=== PATIENT | male | born 1940 | race Caucasian/White ===

== ENCOUNTER 2018-11-21 06:10 | Day surgery (SDC) | payer OTHER ==
[2018-11-15 12:46] VITALS: BMI 26.4
[2018-11-21] MEDS ORDERED: ERYTHROMYCIN 0.5% OPHTHALMIC OINTMENT 3.5 GM TUBE ONE (07:13)
[2018-11-21] MEDS ORDERED: TETRACAINE 0.5% OPHTH SOLN 2 ML BOTTLE ONE (07:13)
[2018-11-21] MEDS ORDERED: BUPIVACAINE HCL/PF 0.5% (5MG/ML) 10 ML VIAL ONE (07:14)
[2018-11-21] MEDS ORDERED: LIDOCAINE 1%/EPI 1:100000 (20 ML MULTI DOSE VIAL) ONE (07:14)
[2018-11-21] MEDS ORDERED: THROMBIN (RECOMBINANT) 5,000 UNIT VIAL TP ONE (07:14)
[2018-11-21] MEDS ORDERED: POVIDONE-IODINE 5% OPHTHALMIC PREP 30 ML SOLUTION ONE (07:25)
[2018-11-21] MEDS ORDERED: MIDAZOLAM HCL 2 MG/2 ML SINGLE DOSE VIAL ONE (07:34)
[2018-11-21] MEDS ORDERED: PROPOFOL 20 ML ONE (07:53)
[2018-11-21] MEDS ORDERED: ceFAZolin SODIUM 1 GM VIAL ONE (07:59)
[2018-11-21] MEDS ORDERED: DEXAMETHASONE SOD PHOSPHATE 4 MG/1 ML VIAL ONE (08:03)
[2018-11-21] MEDS ORDERED: ONDANSETRON 4 MG/2 ML VIAL ONE (08:03)
[2018-11-21] MEDS ORDERED: ONDANSETRON 4 MG/2 ML VIAL IVPUSH PRN (08:35)
[2018-11-21] MEDS ORDERED: oxyCODONE HCL 5 MG TABLET PO PRN (08:35)
[2018-11-21] MEDS ORDERED: LACTATED RINGERS SOLUTION 1,000 ML IV SCH (08:45)
[2018-11-21] MEDS ORDERED: ALBUTEROL SO4 0.083% IH SOL 2.5 MG/3 ML VIAL.NEB. NEB ONE ×2 (09:54→09:57)
--- NOTE | 2018-11-21 10:23 | OP ---
DATE OF OPERATION: 11/21/2018 PREOPERATIVE DIAGNOSIS: Involutional entropion, left lower lid, with secondary keratitis. POSTOPERATIVE DIAGNOSIS: Involutional entropion, left lower lid, with secondary keratitis. PROCEDURE: 1. Lateral tarsal strip, left lower lid. 2. Transconjunctival release of retractors with retractor plication, left lower lid. 3. Excision of orbicularis flap, left lower lid. SURGEON: Court Lewis MD ANESTHESIA: LMA due to a history of baseline decreased oxygenation and COPD. ESTIMATED BLOOD LOSS: 2-3 mL. OPERATION REPORT: Patient was brought to the operating room, placed on the operating room table. Vital signs were monitored by Anesthesia. Tetracaine was placed in both eyes. The patient was placed under LMA anesthesia. Time-out was performed. A line was marked in the left lateral canthus, and a 50/50 mixture of 2% Xylocaine with 1:100,000 epinephrine and 0.5% Marcaine was injected into the lateral canthus down to the periosteum, lateral third in the upper lid, subconjunctivally below the tarsus for a total of 2-3 mL. The patient was massaged for hemostasis. He was prepped and draped in the usual sterile fashion. Right eye was maintained closed during the surgery. Lateral canthal incision was made with a 15 blade through skin and subcutaneous tissue. Hemostasis was achieved with a Maries needle throughout the case. Dissection was carried down to the orbital rim. The inferior faby and the lateral canthal tendon were from the superior faby and released from the orbital rim. The lid was overlapped at the orbital rim, marked with a sterile marking pen, divided into anterior and posterior lamella. The anterior lamella was excised. The posterior lamella was denuded of epithelium posteriorly and superiorly, and the tarsal strip was then reattached at the orbital rim at the junction with a superior faby and lateral canthal tendon with a double arm 5-0 Prolene reinforced with two 6-0 Vicryl lasso sutures. This was checked for symmetry, but not tied at this point. Then, 4-0 silk traction sutures were passed through the central lid margin. Lid was everted over the Desmarres retractor. Transconjunctival incision was made at the inferior tarsal border from punctum to lateral canthus. The retractors were from the orbicularis and dissected down to the septum releasing it, and this created a retractor plane. The tarsus was then from the pretarsal orbicularis internally with a Maries needle. A partial thickness strip of orbicularis was excised at the inferior tarsal border, and a row of cautery was placed to create a scar and prevent overriding the preseptal orbicularis. The retractors were then reattached to the anterior inferior tarsus with 4 or 5 interrupted buried 6-0 Vicryl sutures plicating the retractors and closing the conjunctiva in this fashion. The lateral canthal angle was then closed with a buried 5-0 chromic suture. The Prolene was now tied, reattaching the lateral portion of the eyelid to the orbital rim. Tension was checked and seemed to be appropriate. The excess tarsal strip was overlapped over the Prolene and tied with a 5-0 chromic, and this positioned, the muscle layer after antibiotic irrigation was closed with 5-0 chromic, and the skin was closed with interrupted 6-0 plain suture. Traction suture was removed. Erythromycin ointment was placed in the eye and the lateral canthus, and the patient was awaken from anesthesia and taken to the recovery room in stable condition. COURT LEWIS M.D. [id number]
[2018-11-21 11:14] VITALS: TEMP 97.6
[2018-11-21 11:15] VITALS: BP 110/60; PULSE 66
== END 2018-11-21 11:30 | disposition home or self-care (01) ==
LOC: FASU 06:10
PROVIDERS: ATTEND Ophthalmology
PROC: 08SR0ZZ Reposition Left Lower Eyelid, Open Approach (ICD-10-PCS; principal; 2018-11-21 08:06)
DX: H02.002 Unspecified entropion of right lower eyelid (principal); H16.8 Other keratitis
CPT/HCPCS: 94760